=== PATIENT | female | born 1995 | race Caucasian/White ===

== ENCOUNTER 2022-04-13 00:05 | Observation (INO) | payer OTHER ==
[~2022-04-13] VITALS: Ht 162.6 cm; Wt 122.7 kg
[2022-04-13] VITALS (7 sets, daily range): BP systolic 109–141; BP diastolic 52–77; PULSE 59–87; TEMP 97.4–98
[~2022-04-13 00:05] MED LIST: MOTRIN 800800 MG/TAB PO; PERCOCET 325 MG1 TA2 PO; PRENATAL TABLET PO
[2022-04-13 00:37] LABS: BASO % 0.2 % (0.0-2.0); EOS % 0.2 % (0.0-4.0); GRAN # 6.1 K/mm3 (1.4-6.5); GRAN % 68.4 % (42.2-75.2); HEMATOCRIT 38.5 % (37.0-47.0); HEMOGLOBIN 13.2 g/dl (12.5-16.0); LYMPH # 2.1 K/mm3 (1.2-3.4); LYMPH % 23.5 % (20.0-51.0); MEAN CELL VOLUME 81 fl (80.0-100.0); MEAN CORPUSCULAR HEMOGLOBIN 28 pg (27-31); MEAN CORPUSCULAR HGB CONC 34 g/dl (33.0-37.0); MEAN PLATELET VOLUME 9.9 fl (7.4-10.4); MONO # 0.7 K/mm3 (0.1-0.6); MONO % 7.4 % (1.7-9.3); PLATELET COUNT 308 K/mm3 (130-400); RED BLOOD COUNT 4.73 M/mm3 (4.10-5.30); REDCELL DISTRIBUTION WIDTH-CV 13.2 % (11.5-14.5)
[2022-04-13 00:54] LABS: COLLECTION METHOD CLEAN CATCH
[2022-04-13 00:56] LABS: ALBUMIN 3.8 gm/dL (3.5-5.0); BILIRUBIN,TOTAL 0.5 mg/dL (0.2-1.2); CALCIUM 9.3 mg/dL (8.4-10.2); CREATININE, serum 0.76 mg/dL (0.57-1.11); POTASSIUM 3.7 mmol/L (3.5-4.5); TOTAL PROTEIN 7.2 gm/dL (6.2-8.1)
[2022-04-13 01:11] LABS: MUCOUS Present (NOT PRESENT); SQUAMOUS EPITHELIAL 0-2 /hpf (0-10); URINE BACTERIA None Seen /hpf (NONE SEEN); URINE RBC 0-2 /hpf (0-2)
[2022-04-13 01:16] LABS: URINE APPEARANCE Clear (CLEAR/HAZY); URINE COLOR Yellow (YELLOW); URINE GLUCOSE Negative (NEGATIVE); URINE KETONE Negative (NEGATIVE); URINE NITRATE Negative (NEGATIVE); URINE PROTEIN(semi-quant) Negative (NEGATIVE); URINE UROBILINOGEN 0.2 E.U/dL (0.2-1.0)
[2022-04-13 01:17] LABS: URINE BLOOD 2+ (NEGATIVE)
--- NOTE | 2022-04-13 08:48 | NUR ---
Spoke with Dr MCBRIDE NURSE AND INFORMED OF PATIENT NOT TAKING ABT R/T BREAST FEEDING .
--- NOTE | 2022-04-13 11:22 | NUR ---
SW met with the patient to discuss discharge plan. The patient lives in [place] with her , Lalo (ph#[phone]), and their [id number] daughter. She reports independence with ADLs and does not have any DME. The patient's PCP is Dr. Viktor Andres and she receives her medications from the [facility] in . The patient does not have a DPOA-HC and she was not interested in completing one at this time. The patient plans to return home with her family upon discharge. No additional needs at this time. *Discharge plan: home with family*
--- NOTE | 2022-04-13 13:05 | NUR ---
Initial visit: Pt was with a nurse. [employer] asked if she had any needs, none at this time. Pt appreciated the visit. [employer] Engineer will follow up as needed
[2022-04-13] MEDS ORDERED: PERCOCET 325 MG1 TA2 PO (16:52)
--- NOTE | 2022-04-13 18:23 | NUR ---
PT RETURNED FROM PACU, SAT ON EDGE OF BED AND AMBULATED TO BATHROOM WITH SBA, PATIENT VOIDED WITHOUT PROBLEM. 5 LAP SITE CLEAN, DRY AND INTACT, NO BLEEDING NOTED. WATER AND JELLO GIVEN AT THIS TIME.
--- NOTE | 2022-04-13 19:30 | NUR ---
Pt in bed and watching TV. A&O x4. Visitor at bedside. VSS. Pt reports tenderness on RUQ incision. All incision sites x5, are CDI. Bandaids are in place. Shift assessment completed. Pt drinking water at this time. L wrist INT is CDI. Pain scored at 7/10 at this time, and she states is a tolerable pain. Belongings and call light within reach.
--- NOTE | 2022-04-13 20:00 | NUR ---
Discharging instructions are in place. All papers signed and discussed with pt s/s that need to be notified immediately. medications sent to her pharmacy. IV DC with tip intact around 2014 with no complains from pt. Pt scorted out at 2029 by this LATHE OPERATOR.
== END 2022-04-13 20:30 | disposition home or self-care (01) ==
LOC: COL.ER 00:05 → MEDICAL 02:26
PROVIDERS: Emergency Medicine; ADMIT Surgery
DX: K80.10 Calculus of gallbladder with chronic cholecystitis without obstruction (principal); K66.0 Peritoneal adhesions (postprocedural) (postinfection)
CPT/HCPCS: G0378; J0690; J0696; J1100; J1170; J1885; J2270; J2405; J2704; J3010; J7120; Q9967